=== PATIENT | male | born 1960 | race Caucasian/White ===

== ENCOUNTER 2024-10-22 08:46 | Outpatient (CLI) | payer MEDICARE, SELFPAY ==
[2024-10-08 15:00] VITALS: BMI 20.7
--- NOTE | 2024-10-08 15:00 | PC.NURSE ---
Pre Radiology instructions Report to the [email or web address] on date 10/22/24 at time __0830am for procedure Time: __10:30am__ YOU MAY BE MONITORED AT HOSPITAL FOR UP TO 4 HOURS AFTER YOUR PROCEDURE. A visitor will be allowed to accompany the patient into the hospital. You and your visitor will be asked to self-screen and do not enter if you have any COVID symptoms. A mask is OPTIONAL within the hospital. Patients are to have no food or drink 6 hours prior to procedure time Driving will be restricted after the procedure, you must have a person to drive you home. Labs will be drawn in preop area and once reviewed, you will be taken to radiology area for procedure. When the procedure is completed, you will be taken to outpatient where you will be monitored for several hours. You may have one visitor in this area. Other than holding anti-coagulants, patient may take other medication(s) as scheduled. Prior to your appointment date patients are instructed to hold anti-coagulants after discussing with ordering provider to stop. If unable to discontinue anti-coagulants please notify radiologist. ? No aspirin or warfarin (Coumadin) for 7 days prior to the procedure. ? No clopidogrel (Plavix), ticagrelor (Brilinta), prasugrel (Effient) or dabigatran (Pradaxa) for 5 days prior to the procedure. ? No rivaroxaban (Xarelto), apixaban (Eliquis), dipyridamole (Aggrenox or Persantine) or cilostazol (Pletal) for 2 days prior to the procedure. Medications to discontinue per physician: _None Date to take last dose: ____None Please leave all valuables, including medications, at home the day of procedure. The hospital will not accept responsibility for valuables. Wear comfortable, loose fitting clothing.? Follow any additional instructions given to you from ordering provider. Telephone instructions given to __Patient and asked if any additional questions and then verbalized understanding. Patient advised to call scheduling provider office or registration scheduling [phone] if any additional questions.
[2024-10-22] VITALS (12 sets, daily range): BP systolic 125–153; BP diastolic 89–98; PULSE 62–76; RESP 16; TEMP 36.7; O2SAT 100; BMI 23.1
--- NOTE | ~2024-10-22 | CT_ITS ---
EXAMINATION: CT biopsy renal DATE: 10/22/2024 13:59 INDICATION: Acute kidney failure TECHNIQUE: The procedure including the risks and benefits was discussed with the patient. Risks discu ssed included bleeding and infection. The patient understood the risks and agreed to proceed. A adam eout was performed to verify the patient's name, date of , and procedure to be performed. The skin overlying the left kidney was prepped and draped in usual sterile fashion. Anesthetic was admin istered with 1% lidocaine subcutaneously. A 16 gauge outer needle was advanced under CT guidance to the periphery of the left kidney. An 18 gauge core biopsy needle was then used to obtain 5 core biops y specimens. Preliminary assessment by the pathologist deemed the specimens adequate. The needle was removed and the entry site was cleaned and dressed. There were no immediate complications. The dose- length product was 146.01 mGy-cm. FINDINGS: CT images demonstrate the outer needle tip adjacent to the left kidney. The biopsy needle c an be seen advanced into a lower pole of the left kidney on the final images. IMPRESSION: 1. Successful CT-guided random left kidney biopsy. Reviewed, dictated and finalized at location B.
--- OUTSIDE RECORDS SUMMARY | 2024-10-22 08:55 | XMS_ITS | Clinical Summary ---
Author Organization [facility] Address [address], [place] [address] Phone Care Team Providers Care Housing Director Name Role Phone Unavailable Primary Care Provider Unavailabl e Medications lisinopril (PRINIVIL,ZESTRIL) 10 MG tablet 08/31/2013 Active Active Problems Problem Noted Date Diagnosed Date Chronic kidney disease, stage 4 (severe) 014 Essential (primary) hypertension 08/31/2013 Social History Tobacco Use Types Packs/Day Years Used Date Smoking Tobacco: Never Assessed Sex and Gender Information Value Date Recorded Sex Assigned at Not on file Legal Sex Male 8:49 AM [facility] Gender Identity Not on file Sexual Orientation Not on file Last Filed Vital Signs Vital Sign Reading Time Taken Comments Blood Pressure 112/70 08/31/2013 12:01 AM CDT Pulse 84 08/31/2013 12:01 AM CDT Temperature 36.9 C (98.5 F) 08/31/2013 12:01 AM CDT Respiratory Rate - - Oxygen Saturation - - Inhaled Oxygen Concentration - - Weight 78 kg (172 lb) 08/31/2013 12:01 AM CDT Height 172.7 cm (5' 8 ) 08/31/2013 12:01 AM CDT Body Mass Index 26.15 08/31/2013 12:01 AM CDT Plan of Treatment Not on file
[2024-10-22 09:22] LABS: Mean Platelet Volume 9.5 fl (7.4-10.4); Platelet Count Result 184 k/mm3 (150-375)
[2024-10-22 09:35] LABS: Prothrombin Time 13.4 Seconds (11.1-14.7)
== END 2024-10-22 18:05 | disposition home or self-care (01) ==
PROVIDERS: Referring Provider Internal Medicine Nephrology; Visit Provider Radiology Diagnostic Radiology
PROC: (CPT 50200; principal; 2024-10-22 10:30)
DX: N17.9 Acute kidney failure, unspecified (principal); N18.9 Chronic kidney disease, unspecified; R76.0 Raised antibody titer; Z01.818 Encounter for other preprocedural examination
CPT/HCPCS: 36415; 50200; 77012; 85049; 85610; 88300; 88329